=== PATIENT | female | born 1980 | race Two or more races ===

== ENCOUNTER → 2023-09-19 | Emergency (ER) | payer OTHER ==
[~2023-09-19] VITALS: Ht 162.6 cm; Wt 69.7 kg
[2023-09-20 03:40] VITALS: BP 147/84; PULSE 81; RESP 18; TEMP 98.1; O2SAT 99
== END | disposition left against medical advice (07) ==
LOC: EDBD 23:23 → ER 23:23
DX: I10 Essential (primary) hypertension (principal); Z53.21 Procedure and treatment not carried out due to patient leaving prior to being seen by health care provider